=== PATIENT | female | born 1985 ===

== ENCOUNTER → 2024-10-26 | Outpatient (REF) ==
[2024-10-27 11:54] LABS: SOFIA COVID ANTIGEN NEGATIVE (NEGATIVE)
== END ==
LOC: M EMP 12:25 → EDBD 12:25
PROVIDERS: ATTEND Family Medicine
DX: Z11.52 Encounter for screening for COVID-19 (principal)

== ENCOUNTER → 2024-12-07 | Outpatient (REF) ==
[2024-12-07 12:01] LABS: SOFIA COVID ANTIGEN NEGATIVE (NEGATIVE)
== END ==
LOC: M EMP 10:30
PROVIDERS: ATTEND Family Medicine
DX: Z01.89 Encounter for other specified special examinations (principal)